=== PATIENT | male | born 1980 ===

== ENCOUNTER 2020-12-12 17:13 | Emergency (ER) | payer OTHER ==
[~2020-12-12] VITALS: Ht 182.9 cm; Wt 118.8 kg
[2020-12-12] MEDS ORDERED: COZAAR50 MG PO (17:35)
[2020-12-12] MEDS ORDERED: GLIPIZIDE XL10 MG PO (17:35)
[2020-12-12] MEDS ORDERED: FORTAMET500 MG PO (17:35)
== END 2020-12-13 19:02 | disposition home or self-care (01) ==
LOC: ER 17:13
DX: I16.0 Hypertensive urgency (principal); I10 Essential (primary) hypertension; R07.89 Other chest pain; Z11.52 Encounter for screening for COVID-19

== ENCOUNTER 2020-12-22 13:10 | Emergency (ER) | payer OTHER ==
[~2020-12-22] VITALS: Ht 182.9 cm; Wt 118.8 kg
[~2020-12-22 13:10] MED LIST: COZAAR50 MG PO; FORTAMET500 MG PO; GLIPIZIDE XL10 MG PO
[2020-12-22] MEDS ORDERED: CARDURA XL4 MG (14:11)
[2020-12-22] MEDS ORDERED: PROTONIX20 MG (14:11)
[2020-12-22] MEDS ORDERED: TENORMIN25 MG (14:11)
== END 2020-12-22 19:21 | disposition home or self-care (01) ==
LOC: ER 13:10
DX: I10 Essential (primary) hypertension (principal); R07.9 Chest pain, unspecified; R51.9 Headache, unspecified